=== PATIENT | female | born 1950 | race Caucasian/White ===

== ENCOUNTER 2016-08-24 02:20 | Emergency (ER) | payer MEDICARE ==
[2016-08-24] MEDS ORDERED: ASPIRIN 81 MG TABLET, CHEWABLE PO ONE (02:31)
[2016-08-24 03:01] LABS: ABSOLUTE EOSINOPHILS # (AUTO) 0.1 10^3/uL (0.0-0.6); ABSOLUTE LYMPHOCYTES (AUTO) 2.7 10^3/uL (0.5-4.7); ABSOLUTE MONOCYTES (AUTO) 0.6 10^3/uL (0.1-1.4); ABSOLUTE NEUT (AUTO) 5.1 10^3/uL (1.7-8.2); BASOPHILS % (AUTO) 0.5 % (0-2); EOSINOPHILS % (AUTO) 1.7 % (0-6); HEMATOCRIT 41.9 % (36.0-47.0); HEMOGLOBIN 14.6 g/dL (12.0-15.5); HGB HCT DIFFERENCE 1.9; LYMPHOCYTES % (AUTO) 31.4 % (13-45); MEAN CORPUSCULAR HEMOGLOBIN 32.2 pg (27.0-33.4); MEAN CORPUSCULAR HGB CONC 34.8 g/dL (32.0-36.0); MEAN CORPUSCULAR VOLUME 93 fl (80-97); RED BLOOD COUNT 4.52 10^6/uL (3.72-5.28); RED CELL DISTRIBUTION WIDTH 14.9 % (11.5-14.0); SEGMENTED NEUTROPHILS % (AUTO) 59.4 % (42-78); WHITE BLOOD COUNT 8.5 10^3/uL (4.0-10.5)
[2016-08-24 03:15] LABS: ALANINE AMINOTRANSFERASE 47 U/L (9-52); ALKALINE PHOSPHATASE 121 U/L (38-126); ANION GAP 12 (5-19); ASPARTATE AMINO TRANSFERASE 29 U/L (14-36); BILIRUBIN,DIRECT 0.3 mg/dL (0.0-0.4); BILIRUBIN,TOTAL 0.6 mg/dL (0.2-1.3); BLOOD UREA NITROGEN 17 mg/dL (7-20); CALCIUM 9.2 mg/dL (8.4-10.2); CARBON DIOXIDE 28 mmol/L (22-30); CHLORIDE 106 mmol/L (98-107); CREATINE KINASE 53 U/L (30-135); GLUCOSE 134 mg/dL (75-110); TOTAL PROTEIN 7.4 g/dL (6.3-8.2)
[2016-08-24 03:27] LABS: CREATINE KINASE MB 0.47 ng/mL (<4.55)
[2016-08-24 03:33] LABS: TROPONIN I < 0.012 ng/mL
[2016-08-24] MEDS ORDERED: NITROGLYCERIN/D5W 250 ML IV PRN (04:55)
--- NOTE | 2016-08-24 05:07 | ER Document Report ---
ED General - General Chief Complaint: Chest Pain Stated Complaint: CHEST PAIN Mode of Arrival: Ambulatory Information source: Patient Notes: This is a 66-year-old female with multiple medical problems who presents for evaluation of chest pain. She states that the discomfort has been fairly constant for the past 2 days and she describes it as feeling like indigestion. At times it will radiate to her right upper extremity and right shoulder and at times will radiate into her back. Tonight her back pain became worse so she decided to come into the ER for evaluation. She has had some associated shortness of breath but no nausea or vomiting and no diaphoresis. She has a prior history of coronary artery disease and NM and is status post 2 vessel CABG in the . She states that her last cardiac catheter was sometime last year and she was told that she has "blockages". Her current chest pain is rated 8/10 TRAVEL OUTSIDE OF THE [place] IN LAST 30 DAYS: No - Related Data Allergies/Adverse Reactions: Androgenic Anabolic Steroid Allergy (Verified 02/09/16 10:16) atorvastatin [From Lipitor] Allergy (Verified 02/09/16 10:16) Sulfa (Sulfonamide Antibiotics) Allergy (Verified 02/09/16 10:16) Past Medical History - General Information source: Patient, [facility] Records - Social History Smoking Status: Never Smoker Family History: Hypertension Patient has suicidal ideation: No Patient has homicidal ideation: No - Past Medical History Cardiac Medical History: Reports: Hx Atrial Fibrillation, Hx Congestive Heart Failure, Hx Coronary Artery Disease, Hx Heart Attack, Hx Hypertension Pulmonary Medical History: Reports: Hx Asthma, Hx COPD Endocrine Medical History: Reports: Hx Diabetes Mellitus Type 2 Renal/ Medical History: Denies: Hx Peritoneal Dialysis Past Surgical History: Reports: Hx Cardiac Surgery, Hx Cholecystectomy Review of Systems - Review of Systems Notes: REVIEW OF SYSTEMS: CONSTITUTIONAL : Denies fever, chills, or sweats. Denies recent illness. EENT: Denies eye, ear, throat, or mouth pain or symptoms. Denies nasal or sinus congestion. CARDIOVASCULAR: As per history of present illness RESPIRATORY: Denies cough, cold, or chest congestion. Dyspnea as per history of present illness GASTROINTESTINAL: Denies abdominal pain. Denies nausea, vomiting, or diarrhea. GENITOURINARY: Denies difficulty urinating, painful urination, burning, frequency, or blood in urine. MUSCULOSKELETAL: Denies neck or back pain or joint pain. Chronic lower extremity edema SKIN: Denies rash or skin lesions. HEMATOLOGIC : Denies easy bruising or bleeding. LYMPHATIC: Denies swollen, enlarged glands. NEUROLOGICAL: Denies altered mental status or loss of consciousness. Denies headache. PSYCHIATRIC: Denies anxiety or stress or depression. ALL OTHER SYSTEMS REVIEWED AND NEGATIVE. Physical Exam - Vital signs Vitals: Pulse Ox 97 08/24/16 02:32 - Notes Notes: PHYSICAL EXAMINATION: GENERAL: Well-appearing, well-nourished and in no acute distress. HEAD: Atraumatic, normocephalic. EYES: Pupils equal round and reactive to light, extraocular movements intact, sclera anicteric, conjunctiva are normal. ENT: nares patent, oropharynx clear without exudates. Moist mucous membranes. NECK: Normal range of motion, supple without lymphadenopathy LUNGS: Faint bibasilar crackles HEART: Regularly irregular rhythm no murmurs appreciated ABDOMEN: Soft, nontender, mildly distended normoactive bowel sounds. No guarding, no rebound. No masses appreciated. EXTREMITIES: Normal range of motion. 1+ pitting edema bilateral lower extremities which is symmetric NEUROLOGICAL: Cranial nerves grossly intact. No gross focal motor or sensory deficit PSYCH: Normal mood, normal affect. SKIN: Warm, Dry, normal turgor, no rashes or lesions noted. Course - Re-evaluation Re-evalutation: 08/24/16 06:12 Patient reevaluated. She states that her chest pain has decreased from an 8/10 to 1/10 08/24/16 06:20 Discussed the case with the comfort filler at [facility], Dr Dave, who agrees with Heparin and NTG drips and transfer for unstable angina - Vital Signs Vital signs: Temp Pulse Resp BP Pulse Ox 17 166/91 H 97 08/24/16 05:46 08/24/16 05:46 08/24/16 05:46 - Laboratory Result Diagrams: 08/24/16 02:50 08/24/16 02:50 Laboratory results interpreted by me: 08/24/16 08/24/16 02:50 02:50 RDW 14.9 H Sodium 146.0 H Glucose 134 H - EKG Interpretation by Me Additional EKG results interpreted by me: 08/24/16 06:22 EKG at 0237 demonstrates normal sinus rhythm with a rate of 76. There is downsloping ST depression noted in V4 V5 and V6 which appears new from prior EKG. Critical Care Note - Critical Care Note Total time excluding time spent on procedures (mins): 45 - minutes of critical care time spent in direct contact evaluating and reevaluating the patient, treating symptoms, reviewing labs and studies and speaking with family and consultants excluding any procedures Discharge - Discharge Clinical Impression: Unstable angina, Acute electrocardiography changes, Hypertensive urgency Condition: Fair Disposition: [facility]
[2016-08-24] MEDS ORDERED: METOPROLOL TARTRATE PF/INJ 5 MG/5 ML SDV IV ONE (06:18)
[2016-08-24] MEDS ORDERED: HEPARIN SOD (PORCINE) 1,000 UNIT/ML 10 ML VIAL IV ONE (06:19)
[2016-08-24] MEDS ORDERED: HEPARIN SOD (PORCINE) 1,000 UNIT/ML 10 ML VIAL IV PRN (06:19)
[2016-08-24] MEDS ORDERED: HEPARIN SODIUM,PORCINE/D5W 250 ML IV PRN (06:19)
[2016-08-24 09:31] LABS: ABSOLUTE EOSINOPHILS # (AUTO) 0.1 10^3/uL (0.0-0.6); ABSOLUTE LYMPHOCYTES (AUTO) 3.2 10^3/uL (0.5-4.7); ABSOLUTE MONOCYTES (AUTO) 0.6 10^3/uL (0.1-1.4); ABSOLUTE NEUT (AUTO) 4.2 10^3/uL (1.7-8.2); BASOPHILS % (AUTO) 0.6 % (0-2); EOSINOPHILS % (AUTO) 1.7 % (0-6); HEMATOCRIT 39.1 % (36.0-47.0); HEMOGLOBIN 13.5 g/dL (12.0-15.5); HGB HCT DIFFERENCE 1.4; LYMPHOCYTES % (AUTO) 39.5 % (13-45); MEAN CORPUSCULAR HEMOGLOBIN 31.9 pg (27.0-33.4); MEAN CORPUSCULAR HGB CONC 34.6 g/dL (32.0-36.0); MEAN CORPUSCULAR VOLUME 92 fl (80-97); MONOCYTES % (AUTO) 6.9 % (3-13); RED BLOOD COUNT 4.23 10^6/uL (3.72-5.28); RED CELL DISTRIBUTION WIDTH 14.7 % (11.5-14.0); SEGMENTED NEUTROPHILS % (AUTO) 51.3 % (42-78); WHITE BLOOD COUNT 8.1 10^3/uL (4.0-10.5)
[2016-08-24 09:36] LABS: PROTHROMBIN TIME 14.3 SEC (11.4-15.4)
[2016-08-24 09:38] LABS: PARTIAL THROMBOPLASTIN TIME 114.3 SEC (23.5-35.8)
[2016-08-24 11:00] LABS: APPEARANCE,URINE SLIGHTLY-CLOUDY; BILIRUBIN,URINE NEGATIVE (NEGATIVE); GLUCOSE, URINE NEGATIVE (NEGATIVE); KETONES,URINE NEGATIVE (NEGATIVE); LEUKOCYTE ESTERASE,URINE LARGE (NEGATIVE); NITRITE,URINE NEGATIVE (NEGATIVE); PROTEIN,URINE 30 mg/dL (NEGATIVE); URINE SPECIFIC GRAVITY 1.013; UROBILINOGEN,URINE NEGATIVE mg/dL (<2.0)
[2016-08-24 15:12] VITALS: BP 163/77
--- NOTE | 2016-08-24 16:02 | EKG REPORT ---
SEVERITY:- ABNORMAL ECG - SINUS RHYTHM MULTIPLE ATRIAL PREMATURE COMPLEXES PROBABLE ANTEROSEPTAL INFARCT, OLD LATERAL LEADS ARE ALSO INVOLVED : Confirmed by: Chapo Paulino 24-Aug-2016 16:01:18
== END 2016-08-24 15:45 | disposition short-term general hospital (02) ==
LOC: ER 02:20
DX: I20.0 Unstable angina (principal); I11.0 Hypertensive heart disease with heart failure; I16.0 Hypertensive urgency; R94.31 Abnormal electrocardiogram [ECG] [EKG]; R07.9 Chest pain, unspecified; I48.91 Unspecified atrial fibrillation; I50.9 Heart failure, unspecified; I25.10 Atherosclerotic heart disease of native coronary artery without angina pectoris; J44.9 Chronic obstructive pulmonary disease, unspecified; Z88.2 Allergy status to sulfonamides; Z90.49 Acquired absence of other specified parts of digestive tract; I25.2 Old myocardial infarction
CPT/HCPCS: 93005; 99285; 96365; 96366; 96368; 36415; 82553; 82550; 85025; 85610; 85730; 80053; 81001; 84484; 71010; 93010; J1644 ×2; A9270; J3490

== ENCOUNTER 2017-12-23 21:41 | Emergency (ER) | payer MEDICARE ==
[2017-12-23 21:52] VITALS: BP 175/75
--- NOTE | 2017-12-23 22:55 | RADIOLOGY REPORT (SQ) ---
EXAM DESCRIPTION: XR FOOT 3 OR MORE VIEWS COMPLETED DATE/TME: 12/23/2017 22:01 CLINICAL HISTORY: 67 years, Female, pain EXAM DESCRIPTION: CLINICAL HISTORY: pain COMPARISON: None FINDINGS: 3 view(s) submitted. No fracture or dislocation is identified. Bone marrow attenuation is unremarkable. No radiopaque foreign body is identified. IMPRESSION: No acute fracture or dislocation.
--- NOTE | 2017-12-23 23:45 | ER Document Report ---
ED Extremity Problem, Lower - General Chief Complaint: Toe Injury Stated Complaint: POSSIBLE INFECTION Time Seen by Provider: 12/23/17 23:41 Notes: The patient is a 67-year-old female, past medical history hypertension, presents with maggots coming out from underneath her left big toenail. It is worse when she soaks it in a bath. She denies pain, fevers and has not seen a foot doctor for this. TRAVEL OUTSIDE OF THE [place] IN LAST 30 DAYS: No - Related Data Allergies/Adverse Reactions: Androgenic Anabolic Steroid Allergy (Verified 12/23/17 21:47) atorvastatin [From Lipitor] Allergy (Verified 12/23/17 21:47) Sulfa (Sulfonamide Antibiotics) Allergy (Verified 12/23/17 21:47) Past Medical History - General Information source: Patient - Social History Smoking Status: Unknown if Ever Smoked Family History: Hypertension Patient has suicidal ideation: No Patient has homicidal ideation: No - Past Medical History Cardiac Medical History: Reports: Hx Atrial Fibrillation, Hx Congestive Heart Failure, Hx Coronary Artery Disease, Hx Heart Attack, Hx Hypertension Pulmonary Medical History: Reports: Hx Asthma, Hx COPD Endocrine Medical History: Reports: Hx Diabetes Mellitus Type 2 Renal/ Medical History: Denies: Hx Peritoneal Dialysis Past Surgical History: Reports: Hx Cardiac Surgery, Hx Cholecystectomy Review of Systems - Review of Systems Constitutional: denies: Chills, Fever Skin: Change in hair/nails. denies: Rash Neurological/Psychological: denies: Weakness, Numbness Physical Exam - Vital signs Vitals: Temp Pulse Resp BP Pulse Ox 98.1 F 72 16 175/75 H 97 12/23/17 21:50 12/23/17 21:50 12/23/17 21:50 12/23/17 21:50 12/23/17 21:50 - General General appearance: Appears well - Extremities Notes: Left big toenail elevated. - Neurological Neuro grossly intact: Yes Course - Re-evaluation Re-evalutation: Left big toenail elevated without any visible maggots seen. Will not remove the toenail at this time. She is adamant that she sees maggots at home. Will provide her with permethrin cream and follow-up with podiatry. - Vital Signs Vital signs: Temp Pulse Resp BP Pulse Ox 98.1 F 72 16 175/75 H 97 12/23/17 21:50 12/23/17 21:50 12/23/17 21:50 12/23/17 21:50 12/23/17 21:50 Discharge - Discharge Clinical Impression: Maggot infestation Condition: Stable Disposition: HOME, SELF-CARE Additional Instructions: Continue to soak the foot in soapy water. Use the permethrin cream and follow- up with the gas engineer (foot doctor). Prescriptions: Permethrin [Nix 1% Lotion 59 ml] 1 applic TP ONCE #1 bottle Forms: Elevated Blood Pressure Referrals: QING SARAVIA DPM [ACTIVE STAFF] - Follow up as needed
== END 2017-12-24 00:42 | disposition home or self-care (01) ==
LOC: ER 21:41
DX: B88.8 Other specified infestations (principal); I48.91 Unspecified atrial fibrillation; I50.9 Heart failure, unspecified; I25.10 Atherosclerotic heart disease of native coronary artery without angina pectoris; I11.0 Hypertensive heart disease with heart failure; J44.9 Chronic obstructive pulmonary disease, unspecified; E11.9 Type 2 diabetes mellitus without complications; Z88.2 Allergy status to sulfonamides; I25.2 Old myocardial infarction; Z90.49 Acquired absence of other specified parts of digestive tract
CPT/HCPCS: 99283

== ENCOUNTER 2018-01-10 12:52 | Emergency (ER) | payer OTHER, MEDICARE ==
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
[2018-01-10] MEDS ORDERED: LIDOCAINE 5% (700 MG) TRANSDERMAL ADH..PATCH TP ONE (14:34)
[2018-01-10 21:04] VITALS: BP 107/55
== END 2018-01-10 14:46 | disposition home or self-care (01) ==
LOC: ER 12:52
DX: S16.1XXA Strain of muscle, fascia and tendon at neck level, initial encounter (principal); M54.5 Low back pain; V49.40XA Driver injured in collision with unspecified motor vehicles in traffic accident, initial encounter; I25.10 Atherosclerotic heart disease of native coronary artery without angina pectoris; I25.2 Old myocardial infarction; I10 Essential (primary) hypertension; E11.9 Type 2 diabetes mellitus without complications; Z88.8 Allergy status to other drugs, medicaments and biological substances; Z88.2 Allergy status to sulfonamides; Z87.891 Personal history of nicotine dependence
CPT/HCPCS: 72070; 72110; 72125; 99284

== ENCOUNTER 2018-09-13 17:00 | Emergency (ER) | payer OTHER, MEDICARE ==
[2018-09-13] MEDS ORDERED: ACETAMINOPHEN 325 MG TABLET PO ONE (18:45)
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
[2018-09-13 21:14] VITALS: BP 192/71
== END 2018-09-13 21:08 | disposition home or self-care (01) ==
LOC: ER 17:00
DX: S16.1XXA Strain of muscle, fascia and tendon at neck level, initial encounter (principal); S39.012A Strain of muscle, fascia and tendon of lower back, initial encounter; S09.90XA Unspecified injury of head, initial encounter; R51 Headache; M54.2 Cervicalgia; M54.9 Dorsalgia, unspecified; V43.52XA Car driver injured in collision with other type car in traffic accident, initial encounter; E11.9 Type 2 diabetes mellitus without complications; J44.9 Chronic obstructive pulmonary disease, unspecified; I25.10 Atherosclerotic heart disease of native coronary artery without angina pectoris; I10 Essential (primary) hypertension; I48.91 Unspecified atrial fibrillation; Z79.02 Long term (current) use of antithrombotics/antiplatelets; Z88.8 Allergy status to other drugs, medicaments and biological substances; Z88.2 Allergy status to sulfonamides
CPT/HCPCS: 70450; 72070; 72110; 72125; 99284

== ENCOUNTER 2018-10-20 17:41 | Emergency (ER) | payer MEDICARE, OTHER ==
[2018-10-20] MEDS ORDERED: ASPIRIN 81 MG TABLET, CHEWABLE PO ONE (18:05)
[2018-10-20 18:17] LABS: ABSOLUTE EOSINOPHILS # (AUTO) 0.1 10^3/uL (0.0-0.6); ABSOLUTE LYMPHOCYTES (AUTO) 2.5 10^3/uL (0.5-4.7); ABSOLUTE MONOCYTES (AUTO) 0.6 10^3/uL (0.1-1.4); ABSOLUTE NEUT (AUTO) 5.4 10^3/uL (1.7-8.2); BASOPHILS % (AUTO) 0.6 % (0-2); EOSINOPHILS % (AUTO) 1.3 % (0-6); HEMOGLOBIN 14.1 g/dL (12.0-15.5); LYMPHOCYTES % (AUTO) 28.9 % (13-45); MEAN CORPUSCULAR HEMOGLOBIN 31.7 pg (27.0-33.4); MEAN CORPUSCULAR HGB CONC 33.6 g/dL (32.0-36.0); MEAN CORPUSCULAR VOLUME 94 fl (80-97); MONOCYTES % (AUTO) 7.1 % (3-13); PLATELET COUNT 136 10^3/uL (150-450); RED BLOOD COUNT 4.45 10^6/uL (3.72-5.28); RED CELL DISTRIBUTION WIDTH 15.6 % (11.5-14.0); SEGMENTED NEUTROPHILS % (AUTO) 62.1 % (42-78); TOTAL CELLS COUNTED % (AUTO) 100 %; WHITE BLOOD COUNT 8.7 10^3/uL (4.0-10.5)
[2018-10-20] MEDS ORDERED: MORPHINE SULFATE 10 MG/ML INJ IV ONE ×2 (18:20→21:38)
[2018-10-20] MEDS ORDERED: NITROGLYCERIN 0.4 MG/TAB 25 TAB/BOTTLE SL ONE (18:20)
[2018-10-20] MEDS ORDERED: ONDANSETRON HCL INJ/PF 4 MG/2 ML SDV IV ONE (18:21)
[2018-10-20 18:35] LABS: ALANINE AMINOTRANSFERASE 30 U/L (9-52); ALBUMIN 4.4 g/dL (3.5-5.0); ALKALINE PHOSPHATASE 121 U/L (38-126); ANION GAP 11 (5-19); ASPARTATE AMINO TRANSFERASE 24 U/L (14-36); BILIRUBIN,DIRECT 0.3 mg/dL (0.0-0.4); BILIRUBIN,TOTAL 0.7 mg/dL (0.2-1.3); BLOOD UREA NITROGEN 17 mg/dL (7-20); CALCIUM 9.7 mg/dL (8.4-10.2); CARBON DIOXIDE 32 mmol/L (22-30); CHLORIDE 101 mmol/L (98-107); CREATINE KINASE 44 U/L (30-135); GLUCOSE 172 mg/dL (75-110); POTASSIUM 3.6 mmol/L (3.6-5.0); SODIUM 143.6 mmol/L (137-145); TOTAL PROTEIN 7.7 g/dL (6.3-8.2)
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
[2018-10-20 18:46] LABS: CREATINE KINASE MB < 0.22 ng/mL (<4.55); TROPONIN I < 0.012 ng/mL
[2018-10-20] MEDS: NITROGLYCERIN/D5W 50 MG/250 ML RTUINJ IV PRN ×2 (21:31→22:24)
--- NOTE | 2018-10-20 22:33 | ER Document Report ---
ED General - General Chief Complaint: Chest Pain Stated Complaint: CHEST PAIN Time Seen by Provider: 10/20/18 18:20 Primary Care Provider: ANDRES BLISS MD [Primary Care Provider] - Follow up as needed TRAVEL OUTSIDE OF THE [place] IN LAST 30 DAYS: No - HPI Notes: Patient is a 68-year-old female with a known history of coronary artery disease who presents the emergency department for evaluation of chest pain. Is left- sided. It radiates up into her neck, her posterior shoulder, and her left upper extremity. She describes it as a tightness with an occasional throbbing. She states is been intermittently going on for the last several days, lasting 30 to 60 minutes. It is not necessarily exertional, states it can come on at any time. Today became more intense and lasted longer. She states that this pain is very reminiscent of her NC in the past. She had minimal relief with nitroglycerin and presents to the emergency department for evaluation. She does complain of some mild associated shortness of breath, no nausea, diaphoresis, near syncope. She states she has been taking her medications as prescribed. She follows with cardiology at [facility]. She has had bypass grafting as well as cardiac stents x2. She states she is actually due for another heart catheterization within the next 1 to 2 months. - Related Data Allergies/Adverse Reactions: Androgenic Anabolic Steroid Allergy (Verified 10/20/18 17:58) atorvastatin [From Lipitor] Allergy (Verified 10/20/18 17:58) Sulfa (Sulfonamide Antibiotics) Allergy (Verified 10/20/18 17:58) acetaminophen [From Percocet] Adverse Reaction (Verified 10/20/18 17:58) oxycodone [From Percocet] Adverse Reaction (Verified 10/20/18 17:58) Past Medical History - General Information source: Patient - Social History Smoking Status: Never Smoker Frequency of alcohol use: None Drug Abuse: None Family History: Hypertension Patient has suicidal ideation: No Patient has homicidal ideation: No - Past Medical History Cardiac Medical History: Reports: Hx Atrial Fibrillation, Hx Congestive Heart Failure, Hx Coronary Artery Disease, Hx Heart Attack - x2, Hx Hypercholesterolemia, Hx Hypertension Pulmonary Medical History: Reports: Hx Asthma, Hx COPD Endocrine Medical History: Reports: Hx Diabetes Mellitus Type 2 Renal/ Medical History: Denies: Hx Peritoneal Dialysis Past Surgical History: Reports: Hx Cardiac Surgery - x2 stent, graft bypass, Hx Cholecystectomy Review of Systems - Review of Systems Constitutional: No symptoms reported EENT: No symptoms reported Cardiovascular: See HPI Respiratory: No symptoms reported Gastrointestinal: No symptoms reported Physical Exam - Vital signs Vitals: Temp Pulse Resp BP Pulse Ox 97.2 F 67 22 H 148/56 H 100 10/20/18 17:58 10/20/18 17:58 10/20/18 17:58 10/20/18 17:58 10/20/18 17:58 - Notes Notes: Vital signs reviewed, please refer to chart. Head is normocephalic, atraumatic. Pupils equal round, reactive to light. Neck is supple without meningismus. Heart is regular rate and rhythm. Lungs are clear to auscultation bilaterally. Abdomen is soft, nontender, normoactive bowel sounds throughout. Extremities without cyanosis, clubbing. Posterior calves are nontender. Peripheral pulses are equal. Skin is warm and dry. Patient is awake, alert, neurological exam is nonfocal. Course - Re-evaluation Re-evalutation: 10/20/18 22:28 Patient presents emergency department for evaluation. She was placed on a director of cardiac rehabilitation and IV was established. She had EKG, laboratory investigations. She was given aspirin, nitroglycerin, morphine. Her pain improved significantly but then worsened again. She was placed on a nitroglycerin drip, further given morphine. Her pain did improve significantly but was still present. Laboratory investigations were largely unremarkable, including troponin that was negative x2. I did speak with our internal medicine physician for the night, Dr. Ambriz. He did not feel comfortable taking care of the patient with an extensive cardiac history and continued chest pain. I do believe it is reasonable that the patient be evaluated by her own cardiology team. Awaiting phone call from [facility] for transfer. 10/20/18 22:[address] Doe, training and development assistant at [facility]. He asked that the patient be started on a heparin drip. He asked that any beta-blockers she take be continued. He accepted her on behalf of Dr. Camarillo, her training and development assistant. Patient will be transferred to [facility] for further care. - Vital Signs Vital signs: Temp Pulse Resp BP Pulse Ox 98.6 F 67 16 173/59 H 96 10/20/18 21:30 10/20/18 17:58 10/20/18 21:46 10/20/18 21:47 10/20/18 21:46 - Laboratory Result Diagrams: 10/20/18 18:01 10/20/18 18:01 Laboratory results interpreted by me: 10/20/18 10/20/18 18:01 18:01 RDW 15.6 H Plt Count 136 L Carbon Dioxide 32 H Glucose 172 H - Diagnostic Test Radiology reviewed: Reports reviewed Radiology results interpreted by me: 10/20/18 22:34 Chest X-Ray 10/20/18 18:05 IMPRESSION: NO ACUTE RADIOGRAPHIC FINDING IN THE CHEST. - EKG Interpretation by Me Additional EKG results interpreted by me: 10/20/18 22:34 Sinus mechanism with a rate of 69 bpm. Normal axis, IVCD. Nonspecific ST changes, but no acute changes concerning for ischemia or infarction. No significant change when compared to prior study. Discharge - Discharge Clinical Impression: Unstable angina Condition: Stable Disposition: [facility] Admitting Provider: Dr. Camarillo Referrals: ANDRES BLISS MD [Primary Care Provider] - Follow up as needed
[2018-10-20] MEDS ORDERED: HEPARIN SOD (PORCINE) 1,000 UNIT/ML 10 ML VIAL IV ONE (22:45)
[2018-10-20] MEDS ORDERED: HEPARIN SODIUM,PORCINE/D5W 25,000 UNIT/250 ML RTUINJ IV PRN (22:45)
[2018-10-21] MEDS ORDERED: HEPARIN SOD (PORCINE) 1,000 UNIT/ML 10 ML VIAL IV PRN (01:45)
--- NOTE | 2018-10-21 04:41 | ER Document Report ---
Doctor's Note Notes: 10/21/18 04:41 Patient seen and examined, vital signs reviewed, transport team arrived, patient prepared for transport, she was having intermittent chest pain, but she is currently on a nitro drip at a low dose, currently at my exam her chest pain is controlled, and patient is stable for transport.
[2018-10-21 04:45] VITALS: BP 169/65
--- NOTE | 2018-10-21 10:56 | EKG REPORT ---
SEVERITY:- ABNORMAL ECG - SINUS RHYTHM ATRIAL PREMATURE COMPLEX CONSIDER ANTEROSEPTAL INFARCT : Confirmed by: Chapo Paulino 21-Oct-2018 10:55:38
== END 2018-10-21 05:20 | disposition short-term general hospital (02) ==
LOC: ER 17:41
DX: I25.10 Atherosclerotic heart disease of native coronary artery without angina pectoris (principal); R07.9 Chest pain, unspecified; M54.2 Cervicalgia; M25.512 Pain in left shoulder; M79.602 Pain in left arm; R06.02 Shortness of breath; I48.91 Unspecified atrial fibrillation; I50.9 Heart failure, unspecified; I11.0 Hypertensive heart disease with heart failure; J44.9 Chronic obstructive pulmonary disease, unspecified; E11.9 Type 2 diabetes mellitus without complications
CPT/HCPCS: 93005; 96376; 99285; 96375; 96365; 96366; 96368; 36415; 82553; 82550; 85025; 80053; 84484; 71045; 93010; J1644 ×2; A9270; J2270; J2405; J3490

== ENCOUNTER → 2019-10-13 | Outpatient (CLI) | payer MEDICARE ==
--- NOTE | 2019-10-13 18:40 | RADIOLOGY REPORT (SQ) ---
EXAM DESCRIPTION: MRI LT LOWER JOINT WITHOUT IMAGES COMPLETED DATE/TIME: 10/13/2019 11:33 am REASON FOR STUDY: M25.562 PAIN IN LEFT KNEE M25.562 PAIN IN LEFT KNEE. Left knee pain, decreased r tanner of motion, grainy, clicking, radiating pain, popping and swelling. Symptoms for 3 months. No k nown injury. No reported surgery. COMPARISON: None. TECHNIQUE: LeftKnee images acquired and stored on PACS. Multiplanar images include fat sensitive se quences as T1, water sensitive sequences as FST2 or STIR, cartilage sensitive sequences as FSPD, and gradient echo sequences. LIMITATIONS: None. FINDINGS: JOINT AND BURSAE: Small effusion BONE CORTEX AND MARROW: No alteration of signal to suggest marrow replacement. There are multiple ma rginal osteophytes particularly at the lateral compartment and bony spurring of the tibial spines. T here are large marginal osteophytes particularly in the lateral compartment, with there is an exophyt ic osteophyte along the anterolateral tibial plateau with overlying edema and high signal fluid. The re is also a large osteophyte at the tibiofibular joint space posteriorly. No worrisome bone lesions . No occult fracture. ACL: Intact. No degeneration or ganglion cyst. PCL: Intact. MCL: Intact. No periligamentous edema or fluid. LCL: Intact. No periligamentous edema or fluid. MEDIAL MENISCUS: No tears. No abnormal signal. LATERAL MENISCUS: No tears. No abnormal signal. MEDIAL COMPARTMENT: There is loss of cartilaginous signal with thinning of the cartilage and areas of denudation. LATERAL COMPARTMENT: There is loss of cartilaginous signal with thinning of the cartilage with areas the denudation. There is a large marginal osteophyte along the anterior lateral tibial plateau with overlying edema high signal fluid. PATELLA: There is chondromalacia with loss of cartilaginous signal and underlying cystic change in t he patellar facet. There is a 1.6 cm loose body superior to the patella within the joint space EXTENSOR MECHANISM: Intact. Quadriceps and patella tendons normal. SOFT TISSUES: Adjacent muscles and subcutaneous tissues normal. Normal flow void in popliteal artery and vein. OTHER: No other significant finding. IMPRESSION: 1. Moderate to severe tricompartmental osteoarthritis. Large intra-articular loose body in the anter ior joint space. 2. There is a large marginal osteophyte at the lateral tibial plateau with overlying soft tissue sandra a/fluid signal. 3. Areas of denuded cartilage bilateral femur and tibia. No underlying bone marrow edema or fracture . TECHNICAL DOCUMENTATION: JOB ID: [id number] [employer]- All Rights Reserved Reading location - IP/workstation name: [email or web address]
== END ==
LOC: RAD 11:07
PROVIDERS: ATTEND Orthopaedic Surgery Sports Medicine
DX: M17.12 Unilateral primary osteoarthritis, left knee (principal); M23.42 Loose body in knee, left knee; M25.562 Pain in left knee